=== PATIENT | female | born 1960 | race Caucasian/White ===

== ENCOUNTER 2020-06-06 00:52 | Outpatient (CLI) | payer BC, SELFPAY ==
--- NOTE | 2020-06-06 | DI.MRI_ITS ---
EXAM: MR BRAIN WO/W CLINICAL HISTORY: BRAIN METS FROM BREAST CA,S/P RADIOSURGERY,SURVEILLANCE EXAM. TECHNIQUE: Multiplanar multisequence MRI of the brain was performed. CONTRAST MATERIAL: IV Contrast: 8 ML of Dotarem contrast administered. FINDINGS: VENTRICLES AND EXTRA AXIAL SPACES: Normal in size and morphology for the patient's age. HEMORRHAGE: None. CEREBRAL PARENCHYMA: Stable area of high signal in the right frontal lobe. Scattered foci of nonenhan cing signal are seen consistent with sequela of small vessel ischemic changes. MIDLINE SHIFT: None. BRAINSTEM/CEREBELLUM: Normal. CALVARIUM: Midline upper and right frontal craniotomy. ENHANCEMENT: Mild interval decrease in size of previously noted enhancing lesion along the falx, betw een the frontal lobes. Decreased size of enhancing lesion in the superior cerebellar vermis. A tiny enhancing focus is faintly visible in the right parietal lobe. Two tiny foci are again noted in the right occipital lobe. A tiny focus of enhancement is seen in in near the midline in the right cereb ellar hemisphere. No new areas of abnormal enhancement are seen. VISUALIZED PARANASAL SINUSES/MASTO IDS: Clear. OTHER FINDINGS: Vascular flow voids are intact. IMPRESSION: Interval decrease in size right paramedian frontal lesion. Other tiny lesions appear stable. DATA REPOSITORY:
[2020-06-06 09:49] LABS: CREATININE 0.68 mg/dL (0.55-1.02)
[2020-06-06] MEDS: Gadoterate meglumine 20 ML VIAL 8 ML IVP (10:05)
[2020-06-06] MEDS: Normal Saline Flush 10 ML SYR IVP (10:05)
== END 2020-06-06 01:12 ==
PROVIDERS: Visit Provider Radiology Radiation Oncology
DX: C79.31 Secondary malignant neoplasm of brain (principal); C50.919 Malignant neoplasm of unspecified site of unspecified female breast
CPT/HCPCS: 70553; 82565

== ENCOUNTER 2020-10-17 01:28 | Outpatient (CLI) | payer BC, SELFPAY ==
[2020-10-17 09:59] LABS: BUN 27 mg/dL (7-18); CREATININE 0.8 mg/dL (0.55-1.02)
[2020-10-17] MEDS: Normal Saline Flush 10 ML SYR IVP (10:06)
[2020-10-17] MEDS: Gadoterate meglumine 20 ML VIAL 8 ML IVP (10:06)
--- NOTE | 2020-10-17 10:35 | DI.MRI_ITS ---
Exam(s) MR BRAIN WO/W EXAM: MR BRAIN WO/W CLINICAL HISTORY: MALIGNANT NEOPLASM OF BRAIN C79.31, BRAIN METASTASES FROM BREAST CANCER.. TECHNIQUE: Multiplanar multisequence MRI of the brain was performed. CONTRAST MATERIAL: IV Contrast: 8 ML of Dotarem contrast administered. MR MRI BRAIN WWO from 12/23/2019 MR MR BRAIN WO/W from 06/06/2020 FINDINGS: VENTRICLES AND EXTRA AXIAL SPACES: Normal in size and morphology for the patient's age. HEMORRHAGE: None. CEREBRAL PARENCHYMA: No focus of restricted diffusion to suggest acute infarct. Stable area of high T 2 signal in the right frontal lobe. Stable scattered areas of high signal in the bilateral white mat ter consistent with small vessel ischemic changes. MIDLINE SHIFT: None. BRAINSTEM/CEREBELLUM: Normal. CALVARIUM: Craniotomy defects. ENHANCEMENT: Stable area of right frontal para median enhancement. Tiny enhancing lesions of the cer ebellum are less conspicuous. New or increased size of enhancement around an enhancing 5 millimeter lesion in the periphery of the right frontal lobe, near the craniotomy defect. VISUALIZED PARANASAL SINUSES/MASTOIDS: Clear. OTHER FINDINGS: None. IMPRESSION: No or increased size of enhancing 5 millimeter lesion in the right frontal lobe. Stable area of enha ncement in the right frontal parafalcine location. Other tiny lesions seen on the previous exam are less conspicuous. DATA REPOSITORY:
== END 2020-10-17 01:48 ==
PROVIDERS: Visit Provider Radiology Radiation Oncology
DX: C79.31 Secondary malignant neoplasm of brain (principal); Z85.3 Personal history of malignant neoplasm of breast
CPT/HCPCS: 70553; 84520; 82565

== ENCOUNTER 2021-01-24 01:25 | Outpatient (CLI) | payer BC, SELFPAY ==
[2021-01-24 10:03] LABS: CREATININE 0.7 mg/dL (0.55-1.02)
== END 2021-01-24 01:45 ==
PROVIDERS: Nurse Practitioner; Visit Provider Radiology Radiation Oncology
DX: C79.31 Secondary malignant neoplasm of brain (principal)
CPT/HCPCS: 82565

== ENCOUNTER 2021-02-21 11:51 | Outpatient (CLI) | payer BC, SELFPAY ==
--- NOTE | 2021-02-21 | DI.MRI_ITS ---
Exam(s) MR BRAIN WO/W EXAM: MR BRAIN WO/W CLINICAL HISTORY: BRAIN CA AND METS,C79.31,S/P SRS,CRANIOTOMY,F/U AFTER THERAPY TECHNIQUE: Multiplanar multisequence MRI of the brain was performed. Both noninfused and contrast i nfused sequences were performed. IV Contrast injected was 8 cc Dotarem. COMPARISON: MR MR BRAIN WO/W from 06/06/2020 MR MR BRAIN WO/W from 10/17/2020 FINDINGS: CEREBRAL PARENCHYMA: Craniotomy again noted. Stable area signal in the right frontal lobe again note d Previously described enhancing subcortical nodule in the right frontal lobe is unchanged. Previously described multiple small foci of FLAIR bright signal abnormality in the white matter, not associated with surrounding edema, hemorrhage, nor enhancement remain unchanged. On the present study oval enh ancing structure in the right paramedian region probably part of the anterior cerebral artery appears unchanged. No new enhancing lesions in the brain nor new abnormal meningeal enhancement. DWI: No focal areas of signal to suggest restricted diffusion. PITUITARY GLAND: No mass nor parasellar abnormality. No obvious abnormality in the cavernous sinuses. FLOW VOIDS: The expected flow void are noted. No evidence of obvious aneurysm nor obvious vascular ma lformation. PARANASAL SINUSES: The visualized paranasal sinuses appear unremarkable. ORBITS: No obvious abnormal findings. IMPRESSION: 1. Stable appearance with very little if any significant change compared to the most recent prior talib dy of 10/17/2020. DATA REPOSITORY:
[2021-02-21] MEDS: Normal Saline Flush 10 ML SYR IVP (11:17)
[2021-02-21] MEDS: Gadoterate meglumine 20 ML VIAL 8 ML IVP (11:17)
[2021-02-21 11:50] LABS: CREATININE 0.6 mg/dL (0.55-1.02)
== END 2021-02-21 12:11 ==
PROVIDERS: Nurse Practitioner; Visit Provider Radiology Radiation Oncology
DX: C79.31 Secondary malignant neoplasm of brain (principal)
CPT/HCPCS: 70553; 82565

== ENCOUNTER → 2021-12-26 01:32 | Outpatient (CLI) | payer BC, SELFPAY ==
--- NOTE | 2021-12-26 | DI.MRI_ITS ---
Exam(s) MR BRAIN WO/W EXAM: MR BRAIN WO/W CLINICAL HISTORY: BRAIN CANCER C79.31 FU AFTER THERAPY. TECHNIQUE: Multiplanar multisequence MRI of the brain was performed. CONTRAST MATERIAL: IV Contrast: 8 ML of Dotarem contrast administered. MR MR BRAIN WO/W from 02/21/2021 FINDINGS: VENTRICLES AND EXTRA AXIAL SPACES: Normal in size and morphology for the patient's age. HEMORRHAGE: None. CEREBRAL PARENCHYMA: New 16 millimeter ring enhancing lesion in the posterosuperior left parietal lob e with surrounding edema. Stable area of encephalomalacia medial right frontal lobe. No change in s erpiginous area of enhancement the right paramedian location in the area of the encephalomalacia whic h likely represents a vessel. No focus of restricted diffusion to suggest acute infarct. Stable scat tered high signal lesions in the white matter likely reflecting microvascular disease. MIDLINE SHIFT: None. BRAINSTEM/CEREBELLUM: Normal. CALVARIUM: Frontal craniotomy defect. VISUALIZED PARANASAL SINUSES/MASTOIDS: Clear. IMPRESSION: New metastatic lesion in the posterior left parietal lobe. Stable area of encephalomalacia in the medial right frontal lobe. DATA REPOSITORY:
[2021-12-26 09:46] LABS: CREATININE 0.8 mg/dL (0.55-1.02)
[2021-12-26] MEDS: Normal Saline Flush 10 ML SYR IVP (09:52)
== END ==
PROVIDERS: Visit Provider Radiology Radiation Oncology
DX: C79.31 Secondary malignant neoplasm of brain (principal)
CPT/HCPCS: 70553; 82565

== ENCOUNTER 2022-07-09 01:06 | Outpatient (CLI) | payer BC, SELFPAY ==
--- NOTE | 2022-07-09 | DI.MRI_ITS ---
Exam(s) MR BRAIN WO/W EXAM: MR BRAIN WO/W CLINICAL HISTORY: BREAST CA WITH BRAIN METS,C50.912,EVALUATE METS TECHNIQUE: Multiplanar multisequence MRI of the brain was performed. Both noninfused and contrast i nfused sequences were performed. IV Contrast injected was cc Dotarem. COMPARISON: MR MR BRAIN WO/W from 02/21/2021 MR MR BRAIN WO/W from 12/26/2021 FINDINGS: CEREBRAL PARENCHYMA: Again noted is evidence of previous right frontal craniotomy. Previously described findings in the medial right frontal lobe are unchanged. There has been interval posterior left parietal craniotomy. The previously described ring-enhancing lesion in the left posterior parietal region is no longer seen. Small amount of extra-axial fluid no vinay at this level. There has been significant decrease in the amount of white matter edema in this r egion.. On SWI there is some susceptibility signal from postoperative blood products at this level. However, there is no evidence of acute hemorrhage at this level nor elsewhere in the brain. There are no new ring-enhancing lesions in the brain. Previously described foci of nonenhancing FLAI R bright white matter signal abnormalities are again noted and appear unchanged and most probably rep resent prior microvascular changes. There are no new foci of restricted diffusion to suggest recent acute ischemic events. PITUITARY GLAND: No mass nor parasellar abnormality. No obvious abnormality in the cavernous sinuses. FLOW VOIDS: The expected flow void are noted. No evidence of obvious aneurysm nor obvious vascular ma lformation. PARANASAL SINUSES: The visualized paranasal sinuses appear unremarkable. ORBITS: No obvious abnormal findings. IMPRESSION: 1. Compared to the prior MRI scan of December 2021 there has been interval posterior left craniotomy wi th removal of the ring-enhancing lesion seen at this level on the December 2021 scan. Postoperative ch anges as described above seen at this site. 2. Previously present right frontal craniotomy and right frontal findings are unchanged. 3. There are no new ring-enhancing lesions in the brain. DATA REPOSITORY:
[2022-07-09 14:36] LABS: CREATININE 0.6 mg/dL (0.55-1.02)
[2022-07-09] MEDS: Normal Saline Flush 10 ML SYR IVP (14:48)
== END 2022-07-09 01:26 ==
LOC: DI 01:07
PROVIDERS: Visit Provider Radiology Radiation Oncology
DX: C50.912 Malignant neoplasm of unspecified site of left female breast (principal); R94.02 Abnormal brain scan
CPT/HCPCS: 70553; 82565

== ENCOUNTER 2022-10-08 01:06 | Outpatient (CLI) | payer BC, SELFPAY ==
--- NOTE | 2022-10-08 | DI.MRI_ITS ---
Exam(s) MR BRAIN WO/W EXAM: MR BRAIN WO/W CLINICAL HISTORY: NEOPLASM OF BRAIN C79.31 BREAST CANCER BRAIN METS MONITOR TECHNIQUE: Multiplanar multisequence MRI of the brain was performed. CONTRAST MATERIAL: IV Contrast: mL of Dotarem contrast administered. COMPARISON: MR MR BRAIN WO/W from 12/26/2021 MR MR BRAIN WO/W from 07/09/2022 FINDINGS: The examination is limited due to patient motion artifact. VENTRICLES AND EXTRA AXIAL SPACES: Normal in size and morphology for the patient's age. HEMORRHAGE: None. CEREBRAL PARENCHYMA: No focus of restricted diffusion to suggest acute infarct. There are multiple fo ci of hyperintense signal seen in the white matter most suggestive of small vessel ischemic disease. There is a stable area of encephalomalacia in the medial aspect of the right frontal lobe. MIDLINE SHIFT: None. BRAINSTEM/CEREBELLUM: Normal. CALVARIUM: Normal. ENHANCEMENT: No suspicious enhancement identified. No new enhancing intracranial metastatic lesions a re seen. VISUALIZED PARANASAL SINUSES/MASTOIDS: Clear. [place]: Normal flow void. PITUITARY GLAND: Unremarkable. OTHER FINDINGS: IMPRESSION: No new intracranial metastatic disease. DATA REPOSITORY:
[2022-10-08 12:07] LABS: CREATININE 0.7 mg/dL (0.55-1.02); Estimated GFR 97.12 (mL/min/1.73m2)
[2022-10-08] MEDS: Normal Saline Flush 10 ML SYR IVP (12:11)
[2022-10-08] MEDS: Gadoterate meglumine 20 ML VIAL 7 ML IVP (12:12)
== END 2022-10-08 01:26 ==
LOC: DI 01:08
PROVIDERS: Visit Provider Radiology Radiation Oncology
DX: C79.31 Secondary malignant neoplasm of brain (principal); Z85.3 Personal history of malignant neoplasm of breast
CPT/HCPCS: 70553; 82565